=== PATIENT | female | born 1970 ===

== ENCOUNTER 2018-10-13 09:07 | Emergency (ER) | payer OTHER ==
[~2018-10-13] VITALS: Ht 167.6 cm; Wt 55.8 kg
== END 2018-10-13 10:46 | disposition home or self-care (01) ==
LOC: ER 09:07
DX: S13.8XXA Sprain of joints and ligaments of other parts of neck, initial encounter (principal); X50.9XXA Other and unspecified overexertion or strenuous movements or postures, initial encounter; Y93.89 Activity, other specified; Y92.89 Other specified places as the place of occurrence of the external cause; Y99.8 Other external cause status